=== PATIENT | female | born 1965 | race Caucasian/White ===

== ENCOUNTER 2020-04-10 01:56 | Inpatient (IN) | payer OTHER ==
[2020-04-10 02:56] VITALS: BMI 40.2
[2020-04-10 03:14] LABS: BASO % 0.5 % (0-2.0); EOS % 0.9 % (0-4.5); HEMATOCRIT 43.2 % (32.4-45.2); HEMOGLOBIN 14.3 GM/dL (10.7-15.3); LYMPH % 22.2 % (8-40); MCH 28.4 pg (25.7-33.7); MEAN CELL VOLUME 86.1 fl (80-96); MEAN PLT VOLUME 8.1 fl (7.5-11.1); MONO % 5.9 % (3.8-10.2); NEUT % 70.5 % (42.8-82.8); PLATELET COUNT 201 K/MM3 (134-434); RBC 5.02 M/mm3 (3.60-5.2); RDW 13.4 % (11.6-15.6); WHITE BLOOD COUNT 9.5 K/mm3 (4.0-10.0)
[2020-04-10] MEDS ORDERED: ACETAMINOPHEN 1000 MG/100 ML VIAL (NON FORMULARY) IVPB ONE (03:21)
[2020-04-10 03:22] LABS: CHLORIDE 102 mmol/L (98-107); POTASSIUM 4.4 mmol/L (3.5-5.1); SODIUM 137 mmol/L (136-145)
[2020-04-10 03:24] LABS: ALBUMIN 3.7 g/dl (3.4-5.0); ANION GAP 6 MMOL/L (8-16); BLOOD UREA NITROGEN 17.1 mg/dL (7-18); CALCIUM 9.2 mg/dL (8.5-10.1); CO2 29 mmol/L (21-32); GLUCOSE,RANDOM 182 mg/dL (74-106)
[2020-04-10 03:27] LABS: SGPT/ALT 36 U/L (13-61)
[2020-04-10 03:28] LABS: SGOT/AST 21 U/L (15-37)
[2020-04-10 03:29] LABS: BILIRUBIN,TOTAL 0.6 mg/dL (0.2-1); TOT PROT 7.4 g/dl (6.4-8.2)
[2020-04-10 03:30] LABS: ALK PHOS 79 U/L (45-117)
[2020-04-10] MEDS ORDERED: ACETAMINOPHEN INJECTION 100 ML IVPB ONE (03:32)
[2020-04-10] MEDS ORDERED: LIDOCAINE VISCOUS 2% ORAL/TOP 20 ML UNIT-DOSE CUP MM ONE (05:09)
[2020-04-10] MEDS ORDERED: MAG HYDROX/AL HYDROX/SIMETH -MYLANTA- ORAL SUSPENSION PO ONE (05:09)
[2020-04-10] MEDS ORDERED: FAMOTIDINE 20 MG/50 ML IVPB 20 MG/50 ML MG IVPB ONE ×2 (05:09→05:13)
[2020-04-10] MEDS ORDERED: LIDOCAINE VISCOUS 2% ORAL/TOP 20 ML UNIT-DOSE CUP ONE (05:13)
[2020-04-10] MEDS ORDERED: MAG HYDROX/AL HYDROX/SIMETH 30 ML UNIT-DOSE CUP ONE (05:13)
[2020-04-10] MEDS ORDERED: ASPIRIN 81 MG CHEWABLE TABLETS PO ONE (06:09)
[2020-04-10] MEDS ORDERED: NITROGLYCERIN SUBLINGUAL 1/200 0.3 MG BTL SL ONE (06:09)
[2020-04-10] MEDS ORDERED: NITROGLYCERIN SUBLINGUAL 1/150 0.4 MG TAB ONE ×2 (06:15→07:28)
[2020-04-10] MEDS ORDERED: NITROGLYCERIN SUBLINGUAL 1/150 0.4 MG TAB SL ONE ×2 (06:15→07:24)
[2020-04-10] MEDS ORDERED: ASPIRIN 81 MG CHEWABLE TABLETS ONE (06:15)
[2020-04-10] MEDS ORDERED: NITROGLYCERIN SUBLINGUAL 1/150 0.4 MG TAB SL PRN (09:21)
[2020-04-10] MEDS ORDERED: metoPROLOL SUCCINATE 25 MG TAB.SR.24H (FP) PO SCH (10:00)
[2020-04-10] MEDS ORDERED: metoPROLOL SUCCINATE 25 MG TAB.SR.24H (FP) ONE (10:08)
[2020-04-10] MEDS ORDERED: ENOXAPARIN NA (PORCINE) 100 MG/1 ML DISP.SYRIN SQ SCH (10:30)
[2020-04-10] MEDS ORDERED: ENOXAPARIN NA (PORCINE) 100 MG/1 ML DISP.SYRIN SQ ONE (10:48)
[2020-04-10] MEDS: SODIUM CHLORIDE 1,000 ML IV SCH (13:38)
[2020-04-10] MEDS: MORPHINE SULFATE 2 MG/ML VIAL IVPUSH PRN ×2 (15:32→20:15)
[2020-04-10] MEDS ORDERED: COLCHICINE 0.6 MG CAP PO ONE (16:45)
[2020-04-10] MEDS: COLCHICINE 0.6 MG CAP PO SCH (17:42)
[2020-04-10] MEDS: PANTOPRAZOLE 40 MG TABLET PO SCH (17:42)
[2020-04-10 18:20] LABS: URINE APPEARANCE CLEAR; URINE BILIRUBIN NEGATIVE (NEGATIVE); URINE COLOR YELLOW; URINE GLUCOSE (UA) 1+ (NEGATIVE); URINE KETONE TRACE (NEGATIVE); URINE LEUK ESTERASE NEGATIVE (NEGATIVE); URINE NITRITE NEGATIVE (NEGATIVE); URINE PROTEIN TRACE (NEGATIVE)
[2020-04-10] MEDS: ASPIRIN 325 MG TABLET PO SCH (21:53)
[2020-04-10] MEDS ORDERED: INSULIN SLIDING SCALE (NOVOLOG) 1 VIAL SQ SCH (22:00)
[2020-04-10] MEDS: INSULIN SLIDING SCALE (NOVOLOG) 1 VIAL SQ SCH (22:08)
[2020-04-11] MEDS: ASPIRIN 325 MG TABLET PO SCH ×3 (06:34→21:25)
[2020-04-11] MEDS: COLCHICINE 0.6 MG CAP PO SCH (06:34)
[2020-04-11] MEDS: INSULIN SLIDING SCALE (NOVOLOG) 1 VIAL SQ SCH ×4 (06:35→22:00)
[2020-04-11] MEDS: PANTOPRAZOLE 40 MG TABLET PO SCH (08:59)
[2020-04-11] MEDS ORDERED: ASPIRIN 81 MG CHEWABLE TABLETS PO SCH (10:00)
[2020-04-11 10:44] LABS: HEMATOCRIT 41.2 % (32.4-45.2); HEMOGLOBIN 13.2 GM/dL (10.7-15.3); MCH 27.6 pg (25.7-33.7); MEAN CELL VOLUME 86.2 fl (80-96); MEAN PLT VOLUME 8.1 fl (7.5-11.1); PLATELET COUNT 222 K/MM3 (134-434); RBC 4.78 M/mm3 (3.60-5.2); RDW 13.8 % (11.6-15.6)
[2020-04-11 11:03] LABS: POTASSIUM 4.3 mmol/L (3.5-5.1)
[2020-04-11 11:07] LABS: CALCIUM 8.8 mg/dL (8.5-10.1)
[2020-04-11 11:08] LABS: BLOOD UREA NITROGEN 7.1 mg/dL (7-18); MAGNESIUM 2.3 mg/dL (1.8-2.4)
[2020-04-11 11:09] LABS: CHOLESTEROL 190 mg/dL (50-200); CREATININE 0.9 mg/dL (0.55-1.3); TRIGLYCERIDES 159 mg/dL (0-150)
[2020-04-11 11:10] LABS: LDL CHOLESTEROL (ONLY SJRH) 98 mg/dL (5-100)
[2020-04-11 11:12] LABS: HDL CHOLESTEROL 65 mg/dL (40-60)
[2020-04-11] MEDS: SODIUM CHLORIDE 1,000 ML IV SCH (13:40)
[2020-04-11] MEDS: metFORMIN HCL 500 MG TABLET (FP) PO SCH (16:12)
[2020-04-11] MEDS: COLCHICINE 0.6 MG TAB PO SCH (21:24)
[2020-04-12] MEDS: ASPIRIN 325 MG TABLET PO SCH ×3 (06:25→22:53)
[2020-04-12] MEDS: metFORMIN HCL 500 MG TABLET (FP) PO SCH ×2 (06:25→16:53)
[2020-04-12] MEDS: INSULIN SLIDING SCALE (NOVOLOG) 1 VIAL SQ SCH ×4 (06:26→22:53)
[2020-04-12] MEDS: COLCHICINE 0.6 MG TAB PO SCH ×2 (09:01→22:53)
[2020-04-12] MEDS: PANTOPRAZOLE 40 MG TABLET PO SCH (09:01)
[2020-04-12] MEDS ORDERED: PT OWN MED DRAWER 7, Y5N ONE ×2 (22:20→22:40)
[2020-04-13] MEDS: INSULIN SLIDING SCALE (NOVOLOG) 1 VIAL SQ SCH ×4 (06:36→21:52)
[2020-04-13] MEDS: metFORMIN HCL 500 MG TABLET (FP) PO SCH ×2 (06:38→16:56)
[2020-04-13] MEDS: ASPIRIN 325 MG TABLET PO SCH ×3 (06:38→21:51)
[2020-04-13] MEDS ORDERED: PT OWN MED DRAWER 7, Y5N ONE (08:29)
[2020-04-13] MEDS: COLCHICINE 0.6 MG TAB PO SCH ×2 (09:22→21:52)
[2020-04-13] MEDS: PANTOPRAZOLE 40 MG TABLET PO SCH (09:22)
[2020-04-14] MEDS: INSULIN SLIDING SCALE (NOVOLOG) 1 VIAL SQ SCH ×2 (06:31→12:21)
[2020-04-14] MEDS: metFORMIN HCL 500 MG TABLET (FP) PO SCH (06:31)
[2020-04-14] MEDS: ASPIRIN 325 MG TABLET PO SCH ×2 (06:31→13:11)
[2020-04-14] MEDS ORDERED: PT OWN MED DRAWER 7, Y5N ONE ×2 (09:42→09:51)
[2020-04-14] MEDS: PANTOPRAZOLE 40 MG TABLET PO SCH (09:44)
[2020-04-14] MEDS: COLCHICINE 0.6 MG TAB PO SCH (09:44)
[2020-04-14 14:25] VITALS: BP 122/78; PULSE 96; TEMP 98.2
== END 2020-04-14 16:05 | disposition home or self-care (01) | DRG 315 ==
LOC: JER 01:56 → JERBED 06:10 → INTOOBSV 06:10 → J4W 12:56 → OBSVTOIN 04-12 12:07 → J4W 04-12 16:50
PROVIDERS: ADMIT Internal Medicine; ATTEND Family Medicine
DX: I31.9 Disease of pericardium, unspecified (principal); Z68.41 Body mass index [BMI] 40.0-44.9, adult; R09.02 Hypoxemia; I31.3 Pericardial effusion (noninflammatory); R07.89 Other chest pain; R73.03 Prediabetes; J45.909 Unspecified asthma, uncomplicated; Z98.84 Bariatric surgery status; E66.01 Morbid (severe) obesity due to excess calories
CPT/HCPCS: 36415; 71045-TC-FY; 71046-TC-FY; 71275-TC; 74174-TC; 80048; 80053; 80061; 81003; 82550; 82728; 82962; 83036; 83615; 83721; 83735; 84443; 84484; 85025; 85027; 85379; 85651; 86038; 86140; 86480; 87040; 87804; 93005; 93010; 93306-TC; 99285-25; C9803; G0378; J0131; U0003

== ENCOUNTER 2022-04-22 14:05 | Emergency (ER) | payer OTHER ==
[2022-04-22 14:41] VITALS: BP 144/95; PULSE 100; RESP 16; TEMP 98.8; BMI 36.6
== END 2022-04-22 17:08 | disposition home or self-care (01) ==
LOC: FER 14:05
DX: S82.141A Displaced bicondylar fracture of right tibia, initial encounter for closed fracture (principal); W11.XXXA Fall on and from ladder, initial encounter
CPT/HCPCS: 73562-TC-RT-FY; 73700-TC-RT; 99284-25